=== PATIENT | male | born 1965 | race Caucasian/White ===

== ENCOUNTER 2020-06-20 08:04 | Outpatient (CLI) | payer BC, SELFPAY ==
[2020-06-20 08:38] LABS: Hematocrit 41.7 % (42.0-52.0); Hemoglobin 14.5 g/dL (14.0-18.0); Mean Corpuscular HGB Conc 34.8 g/dl (32-36); Mean Corpuscular Hemoglobin 34.3 pg (26-34); Mean Corpuscular Volume 98.6 fl (80-100); Mean Platelet Volume 8.6 fl (7.4-10.4); Platelet Count Result 323 k/mm3 (150-375); Red Blood Count 4.23 M/mm3 (4.6-6.20); White Blood Count 9.9 K/mm3 (4.5-10.0)
[2020-06-20 08:51] LABS: Alanine Aminotransferase 19 U/L (4-50); Albumin Level 4.6 g/dL (3.5-5.1); Alkaline Phosphatase 63 U/L (38-126); Anion Gap 7 mmol/L (8-16); Aspartate Amino Transferase 33 U/L (17-59); Bilirubin,Total 0.5 mg/dL (0.2-1.3); Blood Urea Nitrogen 14 mg/dL (9-20); Calcium 9.4 mg/dL (8.4-10.2); Carbon Dioxide 25 mmol/L (22-30); Chloride 104 mmol/L (98-107); Cholesterol 195 mg/dL (0-200); Estimated Glomerular Filt Rate > 60; Glucose 98 mg/dL (75-110); HDL Direct 55 mg/dL; Potassium 4.7 mmol/L (3.4-5.0); Sodium 136 mmol/L (137-145); Triglycerides 145 mg/dL (<150)
[2020-06-20 09:02] LABS: LDL Cholesterol Direct 119 mg/dL
[2020-06-20 09:04] LABS: Hemoglobin A1C 5.1 % (<5.7)
[2020-06-20 09:52] LABS: Prostate Specific Antigen 1.6 ng/mL (< OR = 4.0)
== END 2020-06-20 08:05 | disposition home or self-care (01) ==
PROVIDERS: PCP Family Medicine; Visit Provider Family Medicine
DX: I10 Essential (primary) hypertension (principal); Z12.5 Encounter for screening for malignant neoplasm of prostate; E78.5 Hyperlipidemia, unspecified; R73.01 Impaired fasting glucose
CPT/HCPCS: 36415; 80053; 80061; 83036; 84153; 85027; G0103

== ENCOUNTER 2021-09-18 00:46 | Day surgery (SDC) | payer BC, SELFPAY ==
[2021-09-11 10:20] VITALS: BMI 28.9
--- NOTE | 2021-09-11 10:28 | PC.NURSE ---
Report to the Outpatient Waiting Room, entrance under the green pavilion located off [facility], at time 1000 on date 09/18/21. OR Time: 1200. - You and your visitor will be asked a series of questions to screen for COVID 19 for your protection. - A mask is required within the hospital. - Only one visitor is allowed at this time. Patient visitors will be guided where to wait when not with patient. Preoperative COVID Testing Requirements: No COVID Test needed if: (proof is required; if not received patient will have Rapid Test prior to entry) - Patient has received COVID Vaccine at least 14 days prior to procedure date or - Patient has positive COVID test result within last 90 days of surgery date. COVID Test needed if above criteria is not met If not COVID vaccinated a COVID test must be conducted within 72 hours of surgery and patient is asked to isolate self from time of testing until procedure. You will go to the [facility] for your COVID testing. The [facility] is located at the corner of [address] [facility]. You will only be called if COVID results are positive and your surgeon may reschedule your elective surgery date. Patients may have clear liquids (water, carbonated beverages, clear teas, apple juice) until 3 hours prior to surgery with a maximum of 20 ounces. - No food from midnight until time of surgery - Infants may have breast milk until 4 hours before surgery, formula 6 hours prior to surgery. - Children will be allowed to drink immediately following surgery. If applicable, please bring a bottle or sippy cup to assist with drinking. Juice, water, soda, and popsicles are readily available. For infants on formula, please bring formula the day of surgery. Pacifiers are allowed. Take the following medications with a SIP of water the morning of surgery: INHALER, BUSPIRONE, VENLAFAXINE Medications to discontinue per physician: VITAMINS/SUPPLEMENTS Date to take last dose: ALREADY STOPPED PER DR. DAMON Please no make-up, nail guatemalan, hairspray, perfume, deodorant, or body powder the day of surgery. No jewelry (including any body piercings) or valuables the day of surgery, leave them at home. Please take a shower or bath the night before, or the morning of, surgery with an antibacterial soap. Wear comfortable, loose fitting clothing. Children are encouraged to wear pajamas. - Jewelry must be removed prior to entering the operating room. Rings and piercings that are not removed may be cut off. - The hospital will not accept responsibility for valuables. - Please leave all valuables, including medications, at home the day of surgery. If you are going home after surgery, a licensed pile driver operator must drive you home. - NO public transportation without another adult. - We recommend that an adult stay with you for 24 hours following discharge. - We also recommend that you do not drive, make important decision, drink alcoholic beverages, or take any drugs that were not prescribed by your health care provider for at least 24 hours after your discharge time. For Pediatric surgeries, we recommend two adults accompany the child home (only one inside the building at this time). Follow any additional instructions given to you from your surgeon. Telephone instructions given to CHRISTIAN STARKEY and asked if any additional questions and then verbalized understanding. Patient advised to call surgeon office or pre surgery nurse liaison [phone] if any additional questions.
[2021-09-18 10:10] VITALS: BP 134/81; PULSE 74; RESP 20; TEMP 36.4; O2SAT 96
--- NOTE | 2021-09-18 10:17 | ECG_ITS ---
Measurements Intervals [place] Rate: 67 P: 34 MO: 180 QRS: -35 QRSD: 108 T: 32 QT: 392 QTc: 416 Interpretive Statements SINUS RHYTHM LEFT AXIS DEVIATION INCOMPLETE RIGHT BUNDLE BRANCH BLOCK BORDERLINE ECG Electronically Signed On 09-18-2021 11:46:28 [employer] by Robbin Valadez D.O.
[2021-09-18] MEDS: LACTATED RINGERS 1,000 ML 30 ML IV CONT (10:40)
--- NOTE | 2021-09-18 11:01 | WPDANESEPPF ---
Anes - Initial Pre Proc Eval Procedure: Operation Date: 09/18/21 12:00 Proposed Procedures p Excision Of Large Subcutaneous Mass Upper Posterior Neck - Bruce Naqvi MD Date/Time: 09/18/21 11:01 Surgeon: Bruce Naqvi MD Pre Op Diagnosis: subcutaneous mass posterior neck (11.5x7cm) Patient Data Age: 56 Gender: M Height: 1.75 m Weight: 87.2 kg Last Vital Signs Temp 97.6 F 09/18/21 10:10 Pulse 74 09/18/21 10:10 Resp 20 09/18/21 10:10 BP 134/81 09/18/21 10:10 Pulse Ox 96 09/18/21 10:10 Allergies Allergy/AdvReac Type Severity Reaction Status Date / Time No Known Allergies Allergy Verified 09/18/21 10:32 Home Medications Medication Instructions Recorded Confirmed Type multivitamin 1 cap PO DAILY 08/17/19 09/18/21 History omega-3 fatty acids 1,000 mg 1,000 mg PO DAILY 08/17/19 09/18/21 History capsule atorvastatin 40 mg tablet 40 mg PO QHS #90 tablet 05/22/21 09/18/21 Rx venlafaxine 75 mg capsule,extended 75 mg PO DAILY #90 cap 05/28/21 09/18/21 Rx release 24 hr fenofibrate 160 mg tablet 160 mg PO DAILY #90 tablet 08/10/21 09/18/21 Rx budesonide-formoterol HFA 80 2 puff INHALATION Q12H #10.2 g 08/13/21 09/18/21 Rx mcg-4.5 mcg/actuation aerosol inhaler buspirone 10 mg PO DAILY 09/18/21 09/18/21 History Patient hx anesthesia problems: none Family hx anesthesia problems: none Results Review: All pre-operative results and documents have been reviewed as part of the pre-operative evaluation. 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 S/P cubital tunnel release b/l - 2004 Family History Family History Mother Lung cancer Father Pancreatic cancer Other Carcinoma of colon Family history of aortic aneurysm Malignant neoplasm of prostate Social History Social History Smoking packs per day: 0.5 Smoking cigarettes per day: 10.0 Years smoked: 15 Smoking pack-years: 7.50 Smoking status: Current every day smoker Tobacco type: cigarettes Second hand tobacco smoke exposure: Yes Alcohol intake: current Drinks per week: 12 Substance use: current Substance use type: marijuana Last use: 2 WEEKS Living arrangements: with family Spiritual care concerns: No Anes - Eval Final PreProcedure Day of Procedure 09/18/21 11:01 Patient weight: overweight Heart: regular rate and rhythm Lungs: clear to auscultation Airway: Mallampati scale class II Neurological: alert and oriented Last oral intake: >/= 8 hours ASA classification: II Emergent: no Anesthetic plan: proceed Anesthesia type and monitoring: general LMA (if not in prone position) and standard monitoring Results Review: All pre-operative results and documents have been reviewed as part of the pre-operative evaluation. Informed Consent: The patient's anesthetic plan and its attendant risks and benefits were discussed with the patient/family/POA. Questions were solicited and answers provided to the satisfaction of the patient/family/POA.
--- NOTE | 2021-09-18 12:25 | SUR.PREOP ---
1220-PT AND SIGNIFICANT OTHER AWARE SURGEON DELAYS SELF W/PRIOR CASE MINIMUM ADDITIONAL 1HR.
--- NOTE | 2021-09-18 15:22 | SUR.PREOP ---
1400-PT REQUEST TO CANCEL FOR TODAY AND RESCHEDULE. DR. DAMON AWARE.
== END 2021-09-18 14:12 | disposition home or self-care (01) ==
PROVIDERS: PCP Family Medicine; Visit Provider Surgery
DX: R22.1 Localized swelling, mass and lump, neck (principal); Z53.29 Procedure and treatment not carried out because of patient's decision for other reasons
CPT/HCPCS: 93005; 99212; G0463; J7120

== ENCOUNTER 2021-10-10 00:43 | Day surgery (SDC) | payer BC, SELFPAY ==
[2021-10-01 15:19] VITALS: BMI 28.3
--- NOTE | 2021-10-01 15:21 | PC.NURSE ---
Report to the Outpatient Waiting Room, entrance under the green pavilion located off [facility], at time 1000 on date 10/10/21. OR Time: 1200. - You will be asked a series of questions to screen for COVID 19 for your protection. - A mask is required within the hospital. - No visitors are allowed at this time. Patient visitors will be guided where to wait when not with patient. Preoperative COVID Testing Requirements: No COVID Test needed if: (proof is required; if not received patient will have Rapid Test prior to entry) - Patient has received COVID Vaccine at least 14 days prior to procedure date or - Patient has positive COVID test result within last 90 days of surgery date. COVID Test needed if above criteria is not met Patients may have clear liquids (water, carbonated beverages, clear teas, apple juice) until 3 hours prior to surgery with a maximum of 20 ounces. - No food from midnight until time of surgery Take the following medications with a SIP of water the morning of surgery: BUSPIRONE, INHALER, VENLAFAXINE Medications to discontinue per physician: VITAMINS/SUPPLEMENTS Date to take last dose: 10/07/21 Please no make-up, nail korean, hairspray, perfume, deodorant, or body powder the day of surgery. No jewelry (including any body piercings) or valuables the day of surgery, leave them at home. Please take a shower or bath the night before, or the morning of, surgery with an antibacterial soap. Wear comfortable, loose fitting clothing. - Jewelry must be removed prior to entering the operating room. Rings and piercings that are not removed may be cut off. - The hospital will not accept responsibility for valuables. - Please leave all valuables, including medications, at home the day of surgery. If you are going home after surgery, a licensed chair car driver must drive you home. - NO public transportation without another adult. - We recommend that an adult stay with you for 24 hours following discharge. - We also recommend that you do not drive, make important decision, drink alcoholic beverages, or take any drugs that were not prescribed by your health care provider for at least 24 hours after your discharge time. Follow any additional instructions given to you from your surgeon. Telephone instructions given to CHRISTIAN STARKEY and asked if any additional questions and then verbalized understanding. Patient advised to call surgeon office or pre surgery nurse liaison [phone] if any additional questions.
--- NOTE | 2021-10-09 21:16 | PM.HPGS ---
History of Present Illness History of Present Illness Consent: Risks, benefits, and alternatives have been discussed and questions answered. Patient agrees to proceed with procedure. Chief complaint: Subcutaneous Mass Posterior Neck Narrative: Wily Pizano is a 56 year old male Mr. Pizano is a 56 y/o male who recently presented to the office at the request of Katty Nye NP for evaluation of a lump located on the back of his neck. Patient states around 15 years ago patient was at work when a tractor he was working on ran over him. Patient states the lump has been present for the past 10 years. Patient states the lump has increased gradually in size over the past 10 years. He does not complain of any drainage. He states he has had one other lump on his right hand in the past. No real family history of lipomas. Review of Systems Constitutional: Constitutional: Reports no additional constitutional complaints, Reports fatigue and Denies malaise Eyes: Eyes: Denies change in vision and Denies loss of vision ENT: Reports Normal hearing present, Denies change in voice, Denies dizziness, Denies hoarseness and Denies sore throat Cardiovascular: Cardiovascular: Denies chest pain, Denies leg edema and Denies dyspnea Comments: history of hyperlipidemia Respiratory: Respiratory: Denies cough, Denies dyspnea and Denies wheezing Comments: Patient has been a smoker. Carries a history of emphysema. Gastrointestinal: Gastrointestinal: Denies hematochezia, Denies change in bowel habits and Denies heartburn Comments: History of previous colon resection for high-grade play BETHANIE in a polyp in the transverse colon ( status post extended right hemicolectomy). Genitourinary: Genitourinary: Denies urinary frequency and Denies urinary incontinence Neurologic: Reports Normal hearing present, Denies confusion, Denies dizziness, Denies loss of vision, Denies memory loss and Denies seizure-like activity Psychiatric: Psychiatric: Reports anxiety ( on medications), Denies confusion, Reports depression ( On medications) and Denies memory loss Endocrine: Endocrine: Denies cold intolerance and Reports fatigue Hematologic/Lymphatic: Hematologic/Lymphatic: Denies easy bleeding and Denies easy bruising Allergic/Immunologic: Allergic/Immunologic: Denies wheezing PMFSH Past Medical History Medical History (Updated 10/09/21 @ 21:23 by Bruce Naqvi MD) Anxiety Anxiety (Unknown) Depression (Unknown) Emphysema, unspecified (Unknown) Hyperlipidemia Lump on neck Screening for colon cancer Screening for prostate cancer Subcutaneous mass of neck (Unknown) Surgical History Surgical History History of carpal tunnel release b/l 2004 History of right hemicolectomy 05/2019 - 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 S/P cubital tunnel release b/l - 2004 Family History Family History Mother Lung cancer Father Pancreatic cancer Other Carcinoma of colon Family history of aortic aneurysm Malignant neoplasm of prostate Social History Social History Smoking packs per day: 0.5 Smoking cigarettes per day: 10.0 Years smoked: 15 Smoking pack-years: 7.50 Smoking status: Current every day smoker Tobacco type: cigarettes Second hand tobacco smoke exposure: Yes Alcohol intake: current Drinks per week: 12 Substance use: current Substance use type: marijuana Last use: 2 WEEKS Living arrangements: with family Spiritual care concerns: No Meds Home Medications and Allergies Home Medications Medication Instructions Recorded Confirmed Type multivitamin 1 cap PO DAILY 08/17/19 10/10/21 History omega-3 fatty acids 1,000 mg 1,000 mg PO DAILY 08/17/19 10/10/21 History capsule atorvastatin 40 mg tablet 40 mg P
[2021-10-10] VITALS (7 sets, daily range): BP systolic 145–169; BP diastolic 85–98; PULSE 74–87; RESP 16–21; TEMP 36.5–36.6; O2SAT 97–100
--- NOTE | 2021-10-10 07:48 | WPDANESEPPF ---
Anes - Initial Pre Proc Eval Procedure: Operation Date: 10/10/21 12:00 Proposed Procedures p Excision of Large Subcutaneous Mass Upper Posterior Neck - Bruce Naqvi MD Date/Time: 10/10/21 07:48 Surgeon: Bruce Naqvi MD Pre Op Diagnosis: Subcutaneous Mass Posterior Neck Patient Data Age: 56 Gender: M Height: 1.75 m Weight: 87.2 kg Allergies Allergy/AdvReac Type Severity Reaction Status Date / Time No Known Allergies Allergy Verified 10/01/21 15:19 Home Medications Medication Instructions Recorded Confirmed Type multivitamin 1 cap PO DAILY 08/17/19 10/01/21 History omega-3 fatty acids 1,000 mg 1,000 mg PO DAILY 08/17/19 10/01/21 History capsule atorvastatin 40 mg tablet 40 mg PO QHS #90 tablet 05/22/21 10/01/21 Rx venlafaxine 75 mg capsule,extended 75 mg PO DAILY #90 cap 05/28/21 10/01/21 Rx release 24 hr fenofibrate 160 mg tablet 160 mg PO DAILY #90 tablet 08/10/21 10/01/21 Rx budesonide-formoterol HFA 80 2 puff INHALATION Q12H #10.2 g 08/13/21 10/01/21 Rx mcg-4.5 mcg/actuation aerosol inhaler buspirone 10 mg PO DAILY 09/18/21 10/01/21 History Patient hx anesthesia problems: none Family hx anesthesia problems: none Results Review: All pre-operative results and documents have been reviewed as part of the pre-operative evaluation. 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 S/P cubital tunnel release b/l - 2004 Family History Family History Mother Lung cancer Father Pancreatic cancer Other Carcinoma of colon Family history of aortic aneurysm Malignant neoplasm of prostate Social History Social History Smoking packs per day: 0.5 Smoking cigarettes per day: 10.0 Years smoked: 15 Smoking pack-years: 7.50 Smoking status: Current every day smoker Tobacco type: cigarettes Second hand tobacco smoke exposure: Yes Alcohol intake: current Drinks per week: 12 Substance use: current Substance use type: marijuana Last use: 2 WEEKS Living arrangements: with family Spiritual care concerns: No Anes - Eval Final PreProcedure Day of Procedure 10/10/21 07:48 Patient weight: overweight Heart: regular rate and rhythm Lungs: clear to auscultation and normal air movement Airway: Mallampati scale class II Neurological: alert and oriented Last oral intake: >/= 8 hours ASA classification: III Emergent: no Anesthetic plan: proceed Anesthesia type and monitoring: general ETT and standard monitoring Results Review: All pre-operative results and documents have been reviewed as part of the pre-operative evaluation. Informed Consent: The patient's anesthetic plan and its attendant risks and benefits were discussed with the patient/family/POA. Questions were solicited and answers provided to the satisfaction of the patient/family/POA.
[2021-10-10] MEDS: LACTATED RINGERS 1,000 ML 30 ML IV CONT ×2 (10:18→12:48)
--- NOTE | 2021-10-10 11:07 | WPDHPUPDATE1 ---
History and Physical Update Update Date/Time: 10/10/21 11:07 History and Physical has been reviewed, including an updated exam of the patient. There are NO changes in the patient's condition. Risks, benefits, and alternatives have been discussed and questions answered. Patient agrees to proceed with procedure.
[2021-10-10] MEDS: ceFAZolin 2 GM/D5W 50 ML 2 GM/50 ML BAG IVPB (11:13)
[2021-10-10] MEDS: BUPIVACAINE HCL 0.5% PF 30 ML VIAL INFILTRATE (11:50)
--- NOTE | 2021-10-10 13:22 | W.PM.PROC2 ---
Procedure Note - Detailed Date of Procedure 10/10/21 Pre-op Diagnosis Subcutaneous Mass Posterior Neck (11.5 x 7.5 cm) Post-op Diagnosis same Procedure Performed Complete excision of large subcutaneous mass with overlying skin posterior neck (suspected lipoma) Surgeon Bruce Naqvi MD Hospital Manager [facility] [place], OR 1st assist Anesthesia general Indications Gradually enlarging subcutaneous mass on the posterior neck with significant increase in discomfort over the last year. Findings Mass appeared to have a typical thin capsule consistent with a large lipoma. Description of Procedure After being brought to the room the patient was put to sleep on his bed and then rolled into the prone position by Anesthesia and the nursing staff. His head was carefully padded along with the endotracheal tube is to position him in the prone position so that I could look straight down on the posterior neck. The patient was placed in the prone position position. After a surgical time out confirming patient and procedure the patient was prepped and draped in the usual sterile fashion. Local anesthetic was administered subcutaneously. We used a 50 50 mixture of 2% xylocaine with epinephrine and plain 0.5% Marcaine. A total of about 20 cc of the mixture was used. The lesion measured 11.5 x 7.5 cm as measured on the surface of the skin. Because it seemed to be a fairly soft movable lipoma and the skin was significantly stretched out I decided I could take out ellipse of skin directly over it and thereby perhaps avoid having a lot of space. Therefore I outlined a long transverse ellipse which ended up being about 11.5 cm of skin portion excised measured at the center 3.5 cm wide. This was oriented transversely directly over the long axis of the mass but transversely across the patient's high posterior neck. The elliptical incision was made and I dissected down to the deep subcutaneous tissues. Both superiorly and inferiorly short flaps were raised identifying the small thin fascial or capsular plane between the capsule of the lipoma and the surrounding subcutaneous tissues. Bovie cautery was used for hemostasis and after raising the flaps I started on the patient's left side and we carefully lifted this lipoma off the underlying fascia using Bovie cautery both cutting and cautery cautery current until we lifted off underlying fascia covering his posterior cervical musculature. I thereby then completely excised the lesion. Bleeding was controlled with electrocautery. After this was completed careful evaluation revealed that the skin would come together easily but there was not much space since the base of the lipoma was fairly narrow and therefore I did not feel I needed to drain. Subcutaneous tissues came together without much need for extra suturing with interrupted 2 0 Vicryls. The wound was therefore closed in two layers. An un-dyed 2-0 Vicryl deep subcutaneous and dermal layer and then a 4-0 undyed Monocryl running subcuticular closure was completed. Surgical glue applied as dressing. Patient was rolled over onto his bed and extubated and taken recovery room in good condition. Estimated blood loss was less than 5 cc Patient tolerated this well. Implants none Estimated Blood Loss 5 Drains No Packing No Pathology yes (Subcutaneous mass with overlying ellipse of skin) Complications No immediate complications Condition stable Disposition PACU
== END 2021-10-10 14:32 | disposition home or self-care (01) ==
PROVIDERS: PCP Family Medicine; Visit Provider Surgery
PROC: (CPT 21552; principal; 2021-10-10 11:15)
DX: D17.0 Benign lipomatous neoplasm of skin and subcutaneous tissue of head, face and neck (principal); J43.9 Emphysema, unspecified; F41.8 Other specified anxiety disorders; E78.5 Hyperlipidemia, unspecified; Z79.51 Long term (current) use of inhaled steroids; Z90.49 Acquired absence of other specified parts of digestive tract; F17.210 Nicotine dependence, cigarettes, uncomplicated; F12.90 Cannabis use, unspecified, uncomplicated
CPT/HCPCS: 21552; 88304; J0330; J0690; J1100; J2250; J2405; J2704; J3010; J7120

== ENCOUNTER 2022-08-19 10:21 | Outpatient (CLI) | payer BC, SELFPAY ==
[2022-08-19 19:19] LABS: Alanine Aminotransferase 25 U/L (6-50); Albumin Level 4.5 g/dL (3.5-5.1); Alkaline Phosphatase 71 U/L (38-126); Anion Gap 13 mmol/L (8-16); Aspartate Amino Transferase 33 U/L (17-59); Bilirubin,Total 0.5 mg/dL (0.2-1.3); Blood Urea Nitrogen 10 mg/dL (9-20); Calcium 9.1 mg/dL (8.4-10.2); Carbon Dioxide 21 mmol/L (22-30); Chloride 104 mmol/L (98-107); Cholesterol 199 mg/dL (0-200); Estimated Glomerular Filt Rate > 60; Glucose 98 mg/dL (65-110); HDL Direct 64 mg/dL; Potassium 4.5 mmol/L (3.4-5.0); Sodium 138 mmol/L (137-145); Triglycerides 134 mg/dL (<150)
[2022-08-19 19:30] LABS: LDL Cholesterol Direct 106 mg/dL
[2022-08-19 19:51] LABS: Basophils Percent Auto 0.5 % (0.2-1.2); Eosinophils Absolute Auto 0.1 K/mm3 (0-0.3); Eosinophils Percent Auto 1.1 % (0-4.4); Hematocrit 41.5 % (42.0-52.0); Hemoglobin 13.7 g/dL (14.0-18.0); Immature Granulocyte Absolute 0.03 K/mm3 (0.00-0.031); Immature Granulocyte Percent A 0.4 % (0-0.5); Lymphocytes Absolute Auto 2.87 K/mm3 (0.9-3.2); Lymphocytes Percent Auto 36.6 % (18.3-44.2); Mean Corpuscular Hemoglobin 33.3 pg (26-34); Mean Platelet Volume 9.5 fl (7.4-10.4); Monocytes Absolute Auto 0.8 K/mm3 (0.1-0.6); Monocytes Percent Auto 10.4 % (2.6-8.5); Platelet Count Result 332 k/mm3 (150-375); Red Blood Count 4.11 M/mm3 (4.6-6.20); Red Cell Distribution Width 13.1 % (11.5-14.5); White Blood Count 7.9 K/mm3 (4.5-10.0)
== END 2022-08-19 10:22 | disposition home or self-care (01) ==
LOC: ANHGOSHLAB 10:23
PROVIDERS: PCP Family Medicine; Visit Provider Nurse Practitioner Family
DX: E78.5 Hyperlipidemia, unspecified (principal); Z12.5 Encounter for screening for malignant neoplasm of prostate
CPT/HCPCS: 36415; 80053; 80061; 84153; 85025; G0103

== ENCOUNTER 2023-09-03 08:45 | Outpatient (CLI) | payer OTHER, SELFPAY ==
[2023-09-03 14:18] LABS: Basophils Percent Auto 0.4 % (0.2-1.2); Eosinophils Absolute Auto 0.2 K/mm3 (0-0.3); Eosinophils Percent Auto 1.5 % (0-4.4); Hematocrit 45.6 % (42.0-52.0); Hemoglobin 14.8 g/dL (14.0-18.0); Immature Granulocyte Absolute 0.03 K/mm3 (0.00-0.031); Immature Granulocyte Percent A 0.3 % (0-0.5); Lymphocytes Absolute Auto 2.61 K/mm3 (0.9-3.2); Lymphocytes Percent Auto 26.9 % (18.3-44.2); Mean Corpuscular HGB Conc 32.5 g/dl (32-36); Mean Corpuscular Hemoglobin 33.6 pg (26-34); Mean Corpuscular Volume 103.6 fl (80-100); Mean Platelet Volume 9.2 fl (7.4-10.4); Monocytes Absolute Auto 0.8 K/mm3 (0.1-0.6); Neutrophils Absolute Auto 6.1 K/mm3 (1.3-6.7); Neutrophils Percent Auto 62.9 % (45.5-73.1); Platelet Count Result 330 k/mm3 (150-375); Red Cell Distribution Width 12.3 % (11.5-14.5); White Blood Count 9.7 K/mm3 (4.5-10.0)
[2023-09-03 14:40] LABS: Alanine Aminotransferase 27 U/L (6-50); Albumin Level 4.6 g/dL (3.5-5.1); Alkaline Phosphatase 68 U/L (38-126); Anion Gap 11 mmol/L (8-16); Aspartate Amino Transferase 41 U/L (17-59); Bilirubin,Total 0.5 mg/dL (0.2-1.3); Blood Urea Nitrogen 14 mg/dL (9-20); Calcium 9.5 mg/dL (8.4-10.2); Carbon Dioxide 25 mmol/L (22-30); Chloride 101 mmol/L (98-107); Cholesterol 197 mg/dL (0-200); Estimated Glomerular Filt Rate > 60; Glucose 87 mg/dL (65-110); HDL Direct 61 mg/dL; Potassium 4.7 mmol/L (3.4-5.0); Sodium 137 mmol/L (137-145); Triglycerides 173 mg/dL (<150)
[2023-09-03 14:53] LABS: LDL Cholesterol Direct 99 mg/dL
[2023-09-03 20:37] LABS: Hemoglobin A1C 5.2 % (<5.7)
== END 2023-09-03 08:46 | disposition home or self-care (01) ==
LOC: ANHGOSHLAB 08:46
PROVIDERS: PCP Family Medicine; Visit Provider Nurse Practitioner Family
DX: Z13.29 Encounter for screening for other suspected endocrine disorder (principal); I10 Essential (primary) hypertension; R73.03 Prediabetes; Z13.220 Encounter for screening for lipoid disorders; Z00.00 Encounter for general adult medical examination without abnormal findings
CPT/HCPCS: 36415; 80053; 80061; 83036; 84443; 85025

== ENCOUNTER 2024-03-03 08:47 | Outpatient (CLI) | payer BC, SELFPAY ==
[2024-03-03 19:34] LABS: Basophils Absolute Auto 0.1 K/mm3 (0.0-0.1); Basophils Percent Auto 0.7 % (0.2-1.2); Eosinophils Absolute Auto 0.1 K/mm3 (0-0.3); Eosinophils Percent Auto 1.5 % (0-4.4); Hematocrit 45.2 % (42.0-52.0); Immature Granulocyte Absolute 0.04 K/mm3 (0.00-0.031); Immature Granulocyte Percent A 0.5 % (0-0.5); Lymphocytes Absolute Auto 2.45 K/mm3 (0.9-3.2); Lymphocytes Percent Auto 32.6 % (18.3-44.2); Mean Corpuscular HGB Conc 33.2 g/dl (32-36); Mean Corpuscular Hemoglobin 33.7 pg (26-34); Mean Corpuscular Volume 101.6 fl (80-100); Mean Platelet Volume 9.3 fl (7.4-10.4); Monocytes Absolute Auto 0.8 K/mm3 (0.1-0.6); Monocytes Percent Auto 10.3 % (2.6-8.5); Neutrophils Absolute Auto 4.1 K/mm3 (1.3-6.7); Neutrophils Percent Auto 54.4 % (45.5-73.1); Platelet Count Result 378 k/mm3 (150-375); Red Blood Count 4.45 M/mm3 (4.6-6.20); Red Cell Distribution Width 13.2 % (11.5-14.5); White Blood Count 7.5 K/mm3 (4.5-10.0)
[2024-03-03 20:37] LABS: Alanine Aminotransferase 19 U/L (6-50); Albumin Level 4.7 g/dL (3.5-5.1); Alkaline Phosphatase 72 U/L (38-126); Anion Gap 7 mmol/L (4-12); Aspartate Amino Transferase 41 U/L (17-59); Bilirubin,Total 0.5 mg/dL (0.2-1.3); Blood Urea Nitrogen 10 mg/dL (9-20); Calcium 9.8 mg/dL (8.4-10.2); Carbon Dioxide 28 mmol/L (22-30); Chloride 104 mmol/L (98-107); Cholesterol 267 mg/dL (0-200); Estimated Glomerular Filt Rate > 60; Glucose 101 mg/dL (65-110); HDL Direct 53 mg/dL; Potassium 5.4 mmol/L (3.4-5.0); Sodium 139 mmol/L (137-145); Triglycerides 167 mg/dL (<150)
[2024-03-03 20:48] LABS: LDL Cholesterol Direct 183 mg/dL
[2024-03-03 21:05] LABS: Prostate Specific Antigen 2.6 ng/mL (< OR = 4.0)
[2024-03-03 21:33] LABS: Hemoglobin A1C 5.4 % (<5.7)
[2024-03-06 11:37] LABS: Vitamin D 1,25 (OH)2 Total 47 pg/mL (18-72); Vitamin D2 1,25 (OH)2 <8 pg/mL; Vitamin D3 1,25 (OH)2 47 pg/mL
[2024-03-07 10:18] LABS: Testosterone Free 46.4 pg/mL (35.0-155.0); Testosterone Total 370 ng/dL (250-1100)
== END 2024-03-03 08:48 | disposition home or self-care (01) ==
LOC: ANHGOSHLAB 08:48
PROVIDERS: PCP Family Medicine; Visit Provider Nurse Practitioner Family
DX: Z00.00 Encounter for general adult medical examination without abnormal findings (principal); E55.9 Vitamin D deficiency, unspecified; E78.5 Hyperlipidemia, unspecified; R73.03 Prediabetes; N52.9 Male erectile dysfunction, unspecified; E53.8 Deficiency of other specified B group vitamins; Z12.5 Encounter for screening for malignant neoplasm of prostate; Z13.29 Encounter for screening for other suspected endocrine disorder
CPT/HCPCS: 36415; 80053; 80061; 82607; 82652; 83036; 84153; 84402; 84403; 84443; 85025; G0103

== ENCOUNTER 2024-09-03 09:49 | Outpatient (CLI) | payer BC, SELFPAY ==
[2024-09-03 19:25] LABS: Alanine Aminotransferase 24 U/L (6-50); Albumin Level 4.6 g/dL (3.5-5.1); Alkaline Phosphatase 68 U/L (38-126); Anion Gap 7 mmol/L (4-12); Aspartate Amino Transferase 122 U/L (17-59); Bilirubin,Total 0.6 mg/dL (0.2-1.3); Blood Urea Nitrogen 12 mg/dL (9-20); Calcium 9.3 mg/dL (8.4-10.2); Carbon Dioxide 29 mmol/L (22-30); Chloride 102 mmol/L (98-107); Cholesterol 203 mg/dL (0-200); Estimated Glomerular Filt Rate > 60; Glucose 72 mg/dL (65-110); HDL Direct 67 mg/dL; Potassium 5.1 mmol/L (3.4-5.0); Sodium 138 mmol/L (137-145); Triglycerides 129 mg/dL (<150)
[2024-09-03 19:37] LABS: LDL Cholesterol Direct 97 mg/dL
== END 2024-09-03 09:50 | disposition home or self-care (01) ==
LOC: ANHGOSHLAB 09:50
PROVIDERS: PCP Family Medicine; Visit Provider Family Medicine
DX: E78.5 Hyperlipidemia, unspecified (principal); E87.5 Hyperkalemia
CPT/HCPCS: 36415; 80053; 80061

== ENCOUNTER 2025-06-17 08:39 | Outpatient (CLI) | payer BC, SELFPAY ==
--- OUTSIDE RECORDS SUMMARY | 2025-06-17 08:47 | XMS_ITS | Clinical Summary ---
Author Organization [facility] Address [address], [address] [address] Phone Care Team Providers Care Support Director Name Role Phone Essence Torres MD Primary Care Provider Allergies No known active allergies Medications Multiple Vitamin (MULTI-VITAMIN PO) Take 1 Tab by mouth every morning. Active Glennie-3 Fatty Acids (FISH OIL PO) Take 1 Tab by mouth every morning. Active Probiotic Product (PROBIOTIC DAILY PO) Take by mouth every morning. Active atorvastatin (LIPITOR) 40 MG Tablet Take 40 mg by mouth every morning. At bedtime. Active busPIRone (BUSPAR) 10 MG Tablet Take 15 mg by mouth every morning. Active fenofibrate 160 MG Tablet Take 160 mg by mouth every morning. Active venlafaxine (EFFEXOR-XR) 75 MG CAPSULE SR 24 HR Take 75 mg by mouth every morning. Active Active Problems Problem Noted Date Diagnosed Date S/P right colectomy 05/28/2019 High grade dysplasia in colonic adenoma 05/07/20 19 Family History Medical History Relation Name Comments Hypertension Brother 1 Hypertension Brother 2 Hypertension Brother 3 Hypertension Brother 4 Cancer Father pancreatic Hypertension Father Prostate Cancer Father Cancer Mother LUNG Hypertension Mother No Known Problems Sister 1 No Known Problems Sister 2 No Known Problems Son 1 No Known Problems Son 2 Relation Name Status Comments Brother 1 Alive Brother 2 Alive Brother 3 Alive Brother 4 Alive Father Mother Sister 1 Alive Sister 2 Alive Son 1 Alive Son 2 Alive Social History Tobacco Use Types Packs/Day Years Used Date Smoking Tobacco: Every Day Cigarettes 1 41.1 Started: 05/07/1984 Smokeless Tobacco: Never Comments:quit for 6 years, s moking again Alcohol Use Standard Drinks/Week Comments Yes 28 (1 standard drink = 0.6 oz pu re alcohol) 4 GLASSES A DAY Sexually Active Control Partners Comments Not Currently Female Sex and Gender Information Value Date Recorded Sex Assigned at Not on file Legal Sex Male 11:18 PM CDT Gender Identity Not on file Sexual Orientation Not on file Last Filed Vital Signs Vital Sign Reading Time Taken Comments Blood Pressure 150/91 12/06/2022 8:42 AM [facility]HE [employer]ACH[employer]IST Pulse 66 12/06/2022 8:42 AM [employer]HE MACHINIST Temperature 36 C (96.8 F) 12/06/2022 8:42 AM [employer]HE MACHINIST Respiratory Rate 14 12/06/2022 8:42 AM [employer]HE MACHINIST Oxygen Saturation 99% 12/06/2022 8:42 AM [employer]HE MACHINIST Inhaled Oxygen Concentration - - Weight 87.1 kg (192 lb) 12/06/2022 6:47 AM [employer]HE MACHINIST Height 175.3 cm (5' 9) 12/06/2022 6:47 AM [employer]HE MACHINIST Body Mass Index 28.35 12/06/2022 6:47 AM LATHE MACHINIST Plan of Treatment Health Maintenance Due Date Last Done Comments Hepatitis C Virus (HCV) Screening 1965 Cologuard 2009 Immunochemical Fecal Occult Blood 2009 Pneumococcal Immunization (5 0+ years) (1 of 1 - PCV) 2014 Zoster Immunization (1 of 2) 2014 SARS-COV-2 Immunization (4 - season) 2024 10/15/2021, 01/23/2021, 12/29/2020 Influenza Immunization (#1) 2025 08/19/2022 Colonoscopy 12/07/2027 12/06/2022, 05/31/2020, 03/31/2019 Colorectal Cancer Screening 12/07/2027 Respiratory Syncytial Virus (RSV) Immunization (Adult) (1 - 1-dose 75+ series) 2039 DTaP/Tdap/Td Immunization Discontinued 01/05/2013 TdaP Immunization Completed 01/05/2013 Hepatitis B Immunization Aged Out No longer eligible based on patient's age to complete this topic Human Papillomavirus (HPV) Immunization Aged Out No longer eligible based on patient's age to complete this topic Meningococcal Immunization (ACWY) Aged Out No longer eligible based on patient's age to complete this topic Rotavirus Immunization Aged Out No lo nger eligible based on patient's age to complete this topic Medical Devices Implanted Type Area Crusher Screen Repairer Device Identifier Shelf Expiration Date Model / Serial / Lot Clip 360 Resolution 235cm - [id number] Implanted:Qty: 2 on 05/31/2020 by Abrahan Schwartz DO at [facility] [employer]PL[email or web address] 03/20/2023 [id number] / [id number] / [id number] Insurance [facility] Advance Directives * Full Code (Latest Code Status on File) Date Activated Date Inactivated Comments 05/18/2019 8:48 PM 05/19/2019 3:22 PM CPR-Full Perez atment: FULL ARREST: Attempt Resuscitation/CPR wit intubation and mechanical ventilation. PRE-ARREST: Use entire range of life support measures to stabilize the patient. Care Teams Support Director Relationship Specialty Start Date End Date Essence Torres MD PCP - General Family Medicine 12/03/17
[2025-06-17 18:12] LABS: Hematocrit 41.5 % (42.0-52.0); Hemoglobin 14.0 g/dL (14.0-18.0); Immature Granulocyte Percent A 0.4 % (0-0.5); Lymphocytes Absolute Auto 2.39 K/mm3 (0.9-3.2); Mean Corpuscular HGB Conc 33.7 g/dl (32-36); Mean Corpuscular Hemoglobin 33.3 pg (26-34); Mean Corpuscular Volume 98.6 fl (80-100); Nucleated Red Blood Cells Absolute Auto 0.000 K/mm3 (0.0-0.012); Nucleated Red Blood Cells Perc 0.0 % (0.0-0.2); Platelet Count Result 337 k/mm3 (150-375); Red Blood Count 4.21 M/mm3 (4.6-6.20); White Blood Count 7.4 K/mm3 (4.5-10.0)
[2025-06-17 19:15] LABS: Alanine Aminotransferase 34 U/L (6-50); Albumin Level 4.7 g/dL (3.5-5.1); Alkaline Phosphatase 71 U/L (38-126); Anion Gap 10 mmol/L (4-12); Aspartate Amino Transferase 58 U/L (17-59); Bilirubin,Total 0.4 mg/dL (0.2-1.3); Blood Urea Nitrogen 8 mg/dL (9-20); Calcium 9.5 mg/dL (8.4-10.2); Carbon Dioxide 24 mmol/L (22-30); Chloride 101 mmol/L (98-107); Cholesterol 201 mg/dL (0-200); Estimated Glomerular Filt Rate > 60; Glucose 90 mg/dL (65-110); HDL Direct 55 mg/dL; Magnesium 2.1 mg/dL (1.6-2.3); Potassium 4.6 mmol/L (3.4-5.0); Sodium 135 mmol/L (137-145); Total Protein 8.2 g/dL (6.3-8.2); Triglycerides 123 mg/dL (<150)
[2025-06-17 19:21] LABS: Thyroid Stimulating Hormone Reflex 0.938 uIU/mL (0.465-4.68)
[2025-06-17 19:29] LABS: Hemoglobin A1C 5.3 % (<5.7)
[2025-06-17 19:51] LABS: Prostate Specific Antigen 2.4 ng/mL (< OR = 4.0)
[2025-06-17 20:10] LABS: Vitamin B12 445.0 pg/mL (239-931)
== END 2025-06-17 08:40 | disposition home or self-care (01) ==
LOC: ANHGOSHLAB 08:39
PROVIDERS: PCP Nurse Practitioner Family; Visit Provider Nurse Practitioner Family
DX: R73.9 Hyperglycemia, unspecified (principal); I10 Essential (primary) hypertension; F41.9 Anxiety disorder, unspecified; E78.5 Hyperlipidemia, unspecified; E55.9 Vitamin D deficiency, unspecified
CPT/HCPCS: 36415; 80053; 80061; 82306; 82607; 83036; 83735; 84153; 84443; 85025; G0103